=== PATIENT | male | born 1950 | race Caucasian/White ===

== ENCOUNTER 2022-08-22 10:29 | Inpatient (IN) ==
--- NOTE | 2022-07-29 10:59 | PAT Medication Instructions ---
Medication Instructions Date of Service July 29, 2022 Home Medications Herbal Magnesium 2 tab PO BID calcipotriene 0.005 % topical cream 1 applic topical DAILY PRN Rash celecoxib 200 mg capsule (Celebrex) 200 mg PO QAM cetirizine 10 mg tablet 10 mg PO HS cholecalciferol (vitamin D3) 125 mcg (5,000 unit) tablet (Vitamin D3) 10,000 unit PO QPM clobetasol 0.05 % topical cream 1 applic topical DAILY PRN Rash ferrous sulfate 325 mg (65 mg iron) tablet 325 mg PO QPM tamsulosin 0.4 mg capsule 0.4 mg PO QPM vitamin K2 100 mcg capsule 100 mcg PO QPM ASK your surgeon for instructions celecoxib 200 mg capsule (Celebrex) 200 mg PO QAM STOP taking 2 weeks before surgery Herbal Magnesium 2 tab PO BID vitamin K2 100 mcg capsule 100 mcg PO QPM STOP taking 24 hours before surgery calcipotriene 0.005 % topical cream 1 applic topical DAILY PRN Rash clobetasol 0.05 % topical cream 1 applic topical DAILY PRN Rash Take evening before surgery cetirizine 10 mg tablet 10 mg PO HS cholecalciferol (vitamin D3) 125 mcg (5,000 unit) tablet (Vitamin D3) 10,000 unit PO QPM ferrous sulfate 325 mg (65 mg iron) tablet 325 mg PO QPM tamsulosin 0.4 mg capsule 0.4 mg PO QPM OTHERWISE NOTHING TO EAT OR DRINK AFTER MIDNIGHT Other Notes If you have any questions please call us at [phone] or [phone] or [phone] or [phone]
--- NOTE | 2022-08-08 10:42 | Anesthesiology Consultation ---
Date of Service August 08, 2022 Assessment & Plan (1) Encounter for pre-operative examination: - COVID screening: Per assessment on 08/08: No known COVID-19 positive contacts or current COVID-19 related symptoms. Travel screen negative. Patient vaccinated. At surgeon discretion if preop Covid testing being done. - Hx anemia: Patient follows with [facility] ([place]). Note sent to hematology regarding preop CBC findings (WBC 3.24, H/H 11.9/35.8). Awaiting response ([facility]/[place]). Chart Review Chart Review: Patient seen in Pre Admission Testing Teaching & Discussion Pre-Anesthesia Teaching/Discussion Notes: Instructed NPO after midnight before surgery,except medications with 15 cc of water. Medication instructions provided according to the PAT guidelines. History Surgery Operation Date: 08/22/22 10:35 Proposed Procedures p L4-S1 Revision Decompression and Fusion, Possible L3-L4, Spinal Cord Monitoring - Kaleb Kaye, Height/Weight Height: 5 ft 9.5 in Weight: 86.7 kg Allergies Allergy/AdvReac Type Severity Reaction Status Date / Time latex Allergy Mild Redness, Verified 07/29/22 14:54 hands raw with latex gloves Medications Home Medications Medication Instructions Recorded Confirmed Last Taken Herbal Magnesium 2 tab PO BID 07/28/22 07/28/22 Unknown calcipotriene 0.005 % topical cream 1 applic topical DAILY PRN Rash 07/28/22 07/28/22 Unknown celecoxib 200 mg capsule (Celebrex) 200 mg PO QAM 07/28/22 07/28/22 Unknown cetirizine 10 mg tablet 10 mg PO HS 07/28/22 07/28/22 Unknown cholecalciferol (vitamin D3) 125 10,000 unit PO QPM 07/28/22 07/28/22 Unknown mcg (5,000 unit) tablet (Vitamin D3) clobetasol 0.05 % topical cream 1 applic topical DAILY PRN Rash 07/28/22 07/28/22 Unknown ferrous sulfate 325 mg (65 mg 325 mg PO QPM 07/28/22 07/28/22 Unknown iron) tablet tamsulosin 0.4 mg capsule 0.4 mg PO QPM 07/28/22 07/28/22 Unknown vitamin K2 100 mcg capsule 100 mcg PO QPM 07/28/22 07/28/22 Unknown Past Medical History Medical History Anemia Chronic, stable. No definitive etiology found per patient Follows with [facility]/[place] BPH (benign prostatic hyperplasia) Chronic back pain Osteoarthritis Exercise / Class Metabolic Activity II 4-5 Yardwork/Stairs/Walk up hill Past Family History Family History Other No family history of adverse response to anesthesia Past Surgical History Surgical History History of anesthesia reaction 2013 > post-op complaints by patient of the "flap" getting stuck so he saw an ENT, he says he was told by the ENT that he had a "scarred uvula" at [facility] when having shoulder surgery Multiple subsequent general anesthesia without issues per patient History of appendectomy History of colonoscopy History of esophagogastroduodenoscopy (EGD) History of eye surgery Right eye retinal tear History of left inguinal hernia repair History of lumbar surgery History of repair of left rotator cuff x3 History of repair of right rotator cuff History of right inguinal hernia repair Nausea and vomiting after administration of anesthetic agent Past Anesthesia History No Family Hx of Anesthesia Complications History of PONV No Hx of Motion Sickness and History of PONV Social History Smoking Status: Former smoker Do You Dip or Chew Tobacco: No Smoking End Date: Quit 10 years ago Hx Alcohol Use: No Hx Substance Use: No substance use type: does not use Review of Systems Patient denies chest pain, shortness of breath, dyspnea on exertion, fever, chills, cough, wheezing, palpitations. Physical Exam Vital Signs VITALS BP 115/74 P 59 TEMP 98.4 SP02 95%RA RESP 18 PHYSICAL Mildly decreased cervical extension range of motion. Full TMJ range of motion. TMD 3 finger breaths Mallampati Score 3 Dentition: intact, molars "repaired" Lungs: clear throughout to auscultation Cardiac: regular rate and rhythm, no murmurs noted Spine: normal Carotid arteries: negative bruit Extremities: no LE edema Lab Results Anesthesia Preop Results Results Anesthesia Widget: WBC 3.24 K/ul (4.8-10.8) L 08/08/22 Hgb 11.9 g/dl (14.0-18.0) L 08/08/22 Hct 35.8 % (42.0-52.0) L 08/08/22 Plt 129 K/uL (130-400) L 08/08/22 Na 140 mmol/L (136-145) 08/08/22 K 4.4 mmol/L (3.5-5.1) 08/08/22 Cl 107 mmol/L (98-107) 08/08/22 CO2 30 mmol/L (21-32) 08/08/22 BUN 26 mg/dl (6-23) H 08/08/22 Creat 1.18 mg/dl (0.6-1.4) 08/08/22 Glucose Level 91 mg/dl (70-99(Fasting)) 08/08/22 PT 10.5 Seconds (9.0-12.0) 08/08/22 PTT 25.6 Seconds (21.0-31.0) 08/08/22 INR 1.0 (0.9-1.1) 08/08/22 Urine Color Yellow 08/08/22 Urine Appearance Clear (Clear) 08/08/22 Urine pH 5.5 (4.5-7.5) 08/08/22 Urine Specific [place] 1.018 (1.000-1.030) 08/08/22 Urine Protein Negative (Negative) 08/08/22 Urine Glucose (UA) Negative (Negative) 08/08/22 Urine Ketones Negative (Negative) 08/08/22 Urine Blood Negative (Negative) 08/08/22 Urine Nitrite Negative (Negative) 08/08/22 Urine Bilirubin Negative (Negative) 08/08/22 Urine Urobilinogen Negative (Negative) 08/08/22 Urine Leukocyte Esterase Negative (Negative) 08/08/22 Blood Type A Negative 08/08/22 Antibody Screen NEGATIVE 08/08/22 Testing Electrocardiogram Date: 08/08/22 NSR at 60bpm. Chest X-Ray Date: 08/08/22 FINDINGS: PA and lateral chest radiographs are obtained. No prior studies are available for comparison at the time of dictation. The cardiomediastinal silhouette is unremarkable. Nonspecific interstitial thickening is likely chronic. There is mild elevation of the right hemidiaphragm with associated right basilar atelectasis. No airspace consolidation or pleural effusion is i dentified. There is no pneumothorax. The skeletal structures are osteopenic. The bony thorax appears intact. Degenerative change is noted throughout the thoracic spine. IMPRESSION: No active disease in the chest. COVID-19 Risk Screen Screening Information COVID-19 Screen Date: 08/08/22 Exposure 21 Days Family/Household +COVID Last 21 Days: No Exposure 10 Days Any COVID Exposure Last 10 Days: No Symptoms Last 10 Days Experienced COVID Sx Last 10 Days: No + COVID 0-90 Days COVID + in Last 0-90 Days: No
[~2022-08-22 10:29] MED LIST: ACETAMINOPHEN 500 MG TAB PO SCH; CeleBREX 200 MG CAP PO SCH; GABAPENTIN 300 MG CAP PO SCH; LR 15ML/HR IV SCH; ceFAZolin 2000MG 2,000 MG/15 ML SYR IV SCH
[2022-08-22] MEDS ORDERED: ROCURONIUM BROMIDE 10 MG/ML 5 ML VIAL IV ONE (10:53)
[2022-08-22] MEDS ORDERED: PROPOFOL IV EMULSION 10 MG/ML 20 ML VIAL IV ONE (10:53)
[2022-08-22] MEDS ORDERED: MIDAZOLAM HCL 1 MG/ML 2ML VIAL ONE (10:53)
[2022-08-22] MEDS ORDERED: fentaNYL citrate PF 100 MCG/2 ML VIAL ONE ×2 (10:53→12:41)
[2022-08-22] MEDS ORDERED: LIDOCAINE 2% 2 ML VIAL/AMP(20MG/ML) INFIL ONE (10:53)
--- NOTE | 2022-08-22 11:08 | History & Physical Bridge Note ---
Date of Service August 22, 2022 History & Physical Bridge Note I have examined the patient, reviewed the History & Physical and in the interval since the performance of the History & Physical I have noted the following changes of clinical significance: no changes noted
--- NOTE | 2022-08-22 11:09 | History & Physical Report ---
Date of Service August 22, 2022 Assessment & Plan (1) Neurogenic claudication due to lumbar spinal stenosis: Plan: L4-S1 decompression and fusion, possible L3-L4 History of Present Illness Chief Complaint: Back and bilateral leg pain Primary Care Provider: Jose Barber This is a 72-year-old male who presents with chronic persistent back and leg pain after failing course of nonoperative care is here for surgical intervention. Allergies Allergy/AdvReac Type Severity Reaction Status Date / Time latex Allergy Mild Redness, Verified 07/29/22 14:54 hands raw with latex gloves Home Medications Medication Instructions Recorded Confirmed Type Herbal Magnesium 2 tab PO BID 07/28/22 07/28/22 History calcipotriene 0.005 % topical cream 1 applic topical DAILY PRN Rash 07/28/22 07/28/22 History celecoxib 200 mg capsule (Celebrex) 200 mg PO QAM 07/28/22 07/28/22 History cetirizine 10 mg tablet 10 mg PO HS 07/28/22 07/28/22 History cholecalciferol (vitamin D3) 125 10,000 unit PO QPM 07/28/22 07/28/22 History mcg (5,000 unit) tablet (Vitamin D3) clobetasol 0.05 % topical cream 1 applic topical DAILY PRN Rash 07/28/22 07/28/22 History ferrous sulfate 325 mg (65 mg 325 mg PO QPM 07/28/22 07/28/22 History iron) tablet tamsulosin 0.4 mg capsule 0.4 mg PO QPM 07/28/22 07/28/22 History vitamin K2 100 mcg capsule 100 mcg PO QPM 07/28/22 07/28/22 History Past Med/Surg History Medical History Anemia Chronic, stable. No definitive etiology found per patient Follows with [facility]/[place] BPH (benign prostatic hyperplasia) Chronic back pain Osteoarthritis Surgical History History of anesthesia reaction 2012 > post-op complaints by patient of the "flap" getting stuck so he saw an ENT, he says he was told by the ENT that he had a "scarred uvula" at [facility] when having shoulder surgery Multiple subsequent general anesthesia without issues per patient History of appendectomy History of colonoscopy History of esophagogastroduodenoscopy (EGD) History of eye surgery Right eye retinal tear History of left inguinal hernia repair History of lumbar surgery History of repair of left rotator cuff x3 History of repair of right rotator cuff History of right inguinal hernia repair Nausea and vomiting after administration of anesthetic agent Family History Other No family history of adverse response to anesthesia Social History Smoking Status: Former smoker Smoking End Date: Quit 10 years ago; Second Hand Exposure: No; Do You Dip or Chew Tobacco: No; Tobacco Cessation Education Requested by Patient: No Hx Alcohol Use: No Hx Substance Use: No Preferred Language: Turkish Communication Ability: Effective Lodge Attendant Required: No Beliefs That Will Affect Care: None Current Living Situation: Spouse Other Information That Helps Us Care for You: No Feels Safe at Home: Yes Safety Concerns: Feels Safe At This Time Assistive Devices: Glasses Physical Exam Physical Exam: Patient is alert and oriented Heart regular rhythm Lungs clear
[2022-08-22] MEDS ORDERED: BUPIVACAINE/EPINEPHRINE 0.5% MPF 1:200,000 30 ML VIAL ONE (11:14)
[2022-08-22] MEDS ORDERED: ceFAZolin 330 MG/ML 1 GM VIAL ONE (11:14)
[2022-08-22] MEDS ORDERED: ePHEDrine sulfate 50 MG/ML AMP IV PRN (11:21)
[2022-08-22] MEDS ORDERED: ONDANSETRON INJ 2 MG/ML 2 ML VIAL IV PRN ×2 (11:21→15:34)
[2022-08-22] MEDS ORDERED: ATROPINE SULFATE 0.1 MG/ML 10ML SYR IV PRN (11:21)
[2022-08-22] MEDS ORDERED: fentaNYL citrate PF 100 MCG/2 ML VIAL IV PRN (11:21)
[2022-08-22] MEDS ORDERED: NALOXONE HCL 0.4 MG/1 ML VIAL/CARP IV PRN ×2 (11:21→15:34)
[2022-08-22] MEDS ORDERED: PROMETHAZINE HCL 12.5 MG in SODIUM CHLORIDE 0.9% 50 ML IV PRN ×2 (11:21→15:34)
[2022-08-22] MEDS ORDERED: LABETALOL HCL IV 5 MG/ML 20ML IV PRN (11:21)
[2022-08-22] MEDS ORDERED: FLUMAZENIL 0.1 MG/1 ML 10 ML VIAL IV PRN (11:21)
[2022-08-22] MEDS ORDERED: HYDROmorphone INJ 1 MG/ML SYRINGE IV PRN ×2 (11:21→15:34)
[2022-08-22] MEDS ORDERED: PHENYLEPHRINE 100MCG/ML 5ML SYR ONE (12:12)
[2022-08-22] MEDS ORDERED: ePHEDrine sulfate 50 MG/ML AMP ONE (12:12)
[2022-08-22] MEDS ORDERED: ONDANSETRON INJ 2 MG/ML 2 ML VIAL ONE ×2 (12:29)
[2022-08-22] MEDS ORDERED: DEXAMETHASONE SOD INJ 4 MG/ML VIAL ONE (12:29)
[2022-08-22] MEDS ORDERED: FLOSEAL HEMOSTATIC MATRIX 10ML TOP ONE (12:35)
[2022-08-22] MEDS ORDERED: SUGAMMADEX SODIUM 200 MG/2 ML VIAL IV ONE (13:59)
--- NOTE | 2022-08-22 14:06 | Operative Report ---
Post Operative Report Pre & Post Diagnosis Operation Date: 08/22/22 11:55 Pre-Op Diagnosis: Neurogenic claudication due to lumbar spinal stenosis Post-Op Diagnosis: Neurogenic claudication due to lumbar spinal stenosis I identified the patient and participated in the time-out.: Yes Procedure Operation Date: 08/22/22 11:55 Actual Procedures #1 revision decompression with bilateral medial facetectomies and foraminotomies L4-L5 L5-S1. #2 posterior spinal fusion L4-L5 L5-S1. #3 placement posterior instrumentation L4-S1. #5 interbody fusion L4-L5 L5-S1. #6 placement Spira 14 x 26 mm cage at L4-L5 and 13 x 26 mm cage at L5-S1. #6 placement locally harvested morselized autograft in the posterior gutters. #7 placement of infuse collagen sponge, master graft in the posterior gutters and I factor and interbody spaces. Surgeon Kaleb Kaye, Rhinologist Jermaine Muir Estimated Blood Loss 50 Findings Consistent with Post-Op Diagnosis Specimens None Indications This is a 72-year-old male who presents above-mentioned diagnosis after failing course of nonoperative care is here for surgical invention. Description of Procedure Patient was met with identified informed consent obtained. Patient was then taken to the operative suite after undergoing successful general intubation was placed in a prone position on the Sebas table top Alcides frame. All bony promises well-padded eyes inspected to ensure no external pressure placed upon them. This point the lumbar spine was prepped and draped in sterile fashion. Sharp dissection with assistance of Bovie cautery was performed down to and exposing the remaining lamina and transverse processes of L4-L5 and the sacral ala bilaterally. From caudal to cephalad fashion revision complete laminectomy of L5 L4 was performed including medial facetectomies and foraminotomies addressing severe foraminal stenosis. Pedicle screws were then placed in L for L5 and S1 levels bilaterally with assistance of fluoroscopy and appropriate sized jorge luis placed. Bilateral transforaminal approach on the right complete discectomy of L5-S1 was performed endplates curetted to subcortical bleeding bone and a 13 x 26 mm Spira cage with I factor tapped in position. Then proceeded to L4-L5 again [address] way of transforaminal approach and right complete discectomy performed endplates curetted to subcortically bone and a 14 x 26 mm Spira cage with I factor tapped position. The rods were then locked into final position bilaterally. The transverse processes of L4-L5 and sacral ala burred to subcortical bleeding bone. Infuse collagen sponge from mass graft locally harvested morselized autograft placed in the posterior gutters. 15 round ORIN drain inserted. The incision was then closed with 1 Vicryl to fascia 2-0 Vicryl subcutaneously and 4 Monocryl for final skin closure. Steri-Strip sterile dressing placed. Patient awakened taken to PACU stable condition. Please note spinal cord monitoring visualized at the procedure no changes noted. Lastly Jermaine Muir was present at the entire procedure involved in patient positio justo complex portions of the surgery and final skin closure. I attest to the content of the Intraoperative Record and any orders documented therein. Any exceptions are noted below.
--- NOTE | 2022-08-22 14:16 | Fluoroscopy Report ---
FL lumbar spine 2-3V CLINICAL HISTORY: L4-S1 DECOMPRESSION COMPARISON STUDY: None. FLUOROSCOPY TIME: 29 seconds. Ka, r: 24.18 mGy FLUOROSCOPIC IMAGES: 2 FINDINGS: Fluoroscopy was provided during L4-L5 and L5-S1 discectomies with interbody spacer placemen t. Posterior decompression is noted. There are bilateral pedicle screws at the L4, L5 and S1 levels w ith interconnecting rods. Hardware is intact. IMPRESSION: Fluoroscopy provided during L4-S1 discectomies, posterior decompression and bilateral pe dicle screw fusion. ACT 112: Negative or not required by law. Electronically signed by: Hero Lopez M.D. 08/22/2022 2:14 PM
--- NOTE | 2022-08-22 15:29 | Anesthesiology Progress Note ---
Date of Service August 22, 2022 Anesthesia Post Procedure Vital Signs Vital Signs: Temp Pulse Pulse Resp BP Pulse Ox O2 Del Method 08/22/22 15:20 36.3 C L 78 15 115/70 95 Nasal Cannula 08/22/22 15:10 85 17 112/62 94 Nasal Cannula 08/22/22 14:50 83 17 119/69 94 Nasal Cannula 08/22/22 15:00 83 15 111/64 91 Nasal Cannula 08/22/22 14:40 88 16 101/70 95 Nasal Cannula 08/22/22 14:33 36.0 C L 93 H 12 123/73 97 Oxymask 08/22/22 11:14 36.9 C 66 20 117/59 L 94 Room Air O2 Flow Rate 08/22/22 15:20 2 08/22/22 15:10 2 08/22/22 14:50 2 08/22/22 15:00 2 08/22/22 14:40 2 08/22/22 14:33 4 08/22/22 11:14 Pain Intensity Back: Pain Intensity: 3 Transfer of Care Handoff Completed per policy Notes Mental Status: alert / awake / arousable Patient Amnestic to Procedure: Yes Nausea / Vomiting: adequately controlled Pain: adequately controlled Airway Patency, RR, SpO2: stable & adequate BP & HR: stable & adequate Hydration State: stable & adequate Anesthetic Complications: no major complications apparent
[2022-08-22] MEDS ORDERED: LORazepam 2 MG/1 ML VIAL IV PRN (15:34)
[2022-08-22] MEDS ORDERED: METOCLOPRAMIDE HCL INJ 5 MG/ML 2 ML VIAL IV PRN (15:34)
[2022-08-22] MEDS ORDERED: bisacodyL 10 MG SUPP PR PRN (15:34)
[2022-08-22] MEDS ORDERED: ONDANSETRON 4 MG OD TAB PO PRN (15:34)
[2022-08-22] MEDS ORDERED: ACETAMINOPHEN 1,000 MG/100 ML VIAL IV PRN (15:34)
[2022-08-22] MEDS ORDERED: ALUMINUM/MAGNESIUM SUSP 30 ML UDC PO PRN (15:34)
[2022-08-22] MEDS ORDERED: HYDROmorphone INJ 0.5 MG/0.5 ML SYR IV PRN (15:34)
[2022-08-22] MEDS ORDERED: hydrOXYzine HCl 25 MG TAB PO PRN (15:34)
[2022-08-22] MEDS ORDERED: DO NOT ADMINISTER PNEUMOCOCCAL VACCINE PRN (15:34)
[2022-08-22] MEDS ORDERED: LORazepam 0.5 MG TAB PO PRN (15:34)
[2022-08-22] MEDS ORDERED: DO NOT ADMINISTER FLU VACCINE PRN (15:34)
[2022-08-22] MEDS ORDERED: SOD PHOSPHATE/SOD BIPHOSPHATE ENEMA 132 ML BTL PR PRN (15:34)
[2022-08-22] MEDS ORDERED: traMADol HCL 50 MG TABLET PO PRN (15:34)
[2022-08-22] MEDS ORDERED: diphenhydrAMINE Capsule 25 MG CAP PO PRN (15:34)
[2022-08-22] MEDS ORDERED: MAGNESIUM HYDROXIDE SUSP 30 ML UDC PO PRN (15:34)
[2022-08-22] MEDS ORDERED: oxyCODONE HCL IR 5 MG TAB (IMMEDIATE RELEASE) PO PRN (15:34)
[2022-08-22] MEDS ORDERED: FAMOTIDINE 20 MG TAB PO PRN (15:34)
[2022-08-22] MEDS: LACTATED RINGER'S 1,000 ML IV SCH (15:45)
--- NOTE | 2022-08-22 18:01 | Consultation ---
Date of Consultation August 22, 2022 Assessment & Plan (1) Neurogenic claudication due to lumbar spinal stenosis: (2) S/P spinal surgery: Post op day# 0 S/P revision decompression L4-S1, fusion L4-S1 today by Dr Kaye EBMicky# 50ml -pain management per ortho -wound management per ortho -PT/OT as appropriate -DVT prophylaxis per ortho -incentive spirometry -monitor H&H for acute blood loss anemia; pre-op Hgb: 11.9 (3) MGUS (monoclonal gammopathy of unknown significance): (4) Anemia: History MGUS, chronic iron deficiency anemia, chronic neutropenia -Pre-op Hgb: 11.9, WBC: 3.2 -Continue ferrous sulfate -Follows with [facility] (5) BPH (benign prostatic hyperplasia): - Continue tamsulosin DVT Prophylaxis -SCDs Disposition per primary team Follows with Dr Jose Barber in [place], [place] for routine care Pt was seen and care coordinated with Dr Hector. See addendum Thank you for this consultation. We will follow the patient with you during their hospital stay. You can reach a [facility]11 via [facility] Supervising Physician Co-Signing Physician Notes I have seen and examined the patient and have discussed the case with the provider above. I agree with the assessment and plan as stated. 72 yo M doing well post lumbar surgery. Has some difference in sensation on hiss lower legs, magnified by the SCDs that are in place. However, sensation is generally improved overall. He denies any uncontrolled back pain or other issuess. Physical exam was unremarkable and he is mentating well. ORIN drain in place. L spsine wound is in surgical dressing and was not evaluated tonight. Medications were reviewed. Agree with the managment decisions above. Thank you for this consultation. DO Krunal History of Present Illness Requesting Physician: Dr Kaye Reason for Consultation: Post op medical management Attending Physician: Kaleb Kaye DO History of Present Illness Patient is 72 y/o M with PMH chronic iron deficiency anemia, MGUS, BPH seen in medical consultation s/p revision decompression L4-S1, fusion L4-S1 today by Dr. Kaye. Post op patient reports doing well. Pain is controlled currently. Has Floyd catheter in place. Tolerating clear liquids. Denies fever/chills, diaphoresis, N/V/D/C, SINGH, dizziness, syncope, vision changes, neck pain, CP, SOB, palpitations, cough, rhinorrhea, abdominal pain, paresthesias, extremity weakness, extremity edema, rashes, urinary symptoms. Allergies Allergy/AdvReac Type Severity Reaction Status Date / Time latex Allergy Mild Redness, Verified 08/22/22 11:10 hands raw with latex gloves Home Medications Medication Instructions Recorded Confirmed Type Herbal Magnesium 2 tab PO BID 07/28/22 08/22/22 History calcipotriene 0.005 % topical cream 1 applic topical DAILY PRN Rash 07/28/22 08/22/22 History celecoxib 200 mg capsule (Celebrex) 200 mg PO QAM 07/28/22 08/22/22 History cetirizine 10 mg tablet 10 mg PO HS 07/28/22 08/22/22 History cholecalciferol (vitamin D3) 125 10,000 unit PO QPM 07/28/22 08/22/22 History mcg (5,000 unit) tablet (Vitamin D3) clobetasol 0.05 % topical cream 1 applic topical DAILY PRN Rash 07/28/22 08/22/22 History ferrous sulfate 325 mg (65 mg 325 mg PO QPM 07/28/22 08/22/22 History iron) tablet tamsulosin 0.4 mg capsule 0.4 mg PO QPM 07/28/22 08/22/22 History vitamin K2 100 mcg capsule 100 mcg PO QPM 07/28/22 08/22/22 History Patient History Medical History (Updated 08/22/22 @ 18:46 by Haylee Ansari PA-C) Anemia Chronic, stable. No definitive etiology found per patient Follows with [facility]/[place] BPH (benign prostatic hyperplasia) Chronic back pain MGUS (monoclonal gammopathy of unknown significance) Osteoarthritis Surgical History (Updated 08/22/22 @ 18:46 by Haylee Ansari PA-C) History of anesthesia reaction 2012 > post-op complaints by patient of the "flap" getting stuck so he saw an ENT, he says he was told by the ENT that he had a "scarred uvula" at [facility] when having shoulder surgery Multiple subsequent general anesthesia without issues per patient History of appendectomy History of colonoscopy History of esophagogastroduodenoscopy (EGD) History of eye surgery Right eye retinal tear History of left inguinal hernia repair History of lumbar surgery History of repair of left rotator cuff x3 History of repair of right rotator cuff History of right inguinal hernia repair Nausea and vomiting after administration of anesthetic agent Family History Other No family history of adverse response to anesthesia Social History Smoking Status: Former smoker Smoking End Date: Quit 10 years ago; Second Hand Exposure: No; Do You Dip or Chew Tobacco: No; Tobacco Cessation Education Requested by Patient: No Hx Alcohol Use: No Hx Substance Use: No Preferred Language: Macanese Communication Ability: Effective Sueding Machine Tender Required: No Beliefs That Will Affect Care: None Current Living Situation: Spouse Other Information That Helps Us Care for You: No Feels Safe at Home: Yes Safety Concerns: Feels Safe At This Time Assistive Devices: Glasses Review of Systems Review of Systems: All systems reviewed & are unremarkable except as noted in HPI & below Physical Exam Physical Exam: General: no acute distress, WDWN Head: normocephalic, atraumatic Eyes: conjunctiva non-injected, anicteric ENT: normal inspection external ears, nose, mucous membranes moist Neck: supple, trachea midline Lungs: clear, no respiratory distress, no wheezing/rhonchi/rales CV: RRR, no murmur, no pretibial edema Abd: normal BS, soft, non-tender Back: Surgical dressing in place is dry and intact, ORIN drain with serosanguineous drainage Ext: no cyanosis, no calf tenderness, bilateral pedal pushes and pulls intact, sensation to light touch intact, distal pulses intact Neuro: A&O x 3, no focal deficits noted, normal affect Skin: warm, dry Results & Data Vital Signs (Past 12 Hours) Vital Signs Temp Pulse Pulse Resp BP Pulse Ox O2 Del Method 08/22/22 17:22 08/22/22 17:37 80 18 120/69 98 Room Air 08/22/22 16:26 83 18 108/65 98 Nasal Cannula 08/22/22 15:34 36.4 C L 72 18 123/76 96 Nasal Cannula 08/22/22 15:36 36.5 C 84 16 106/68 96 Nasal Cannula 08/22/22 15:20 36.3 C L 78 15 115/70 95 Nasal Cannula 08/22/22 15:10 85 17 112/62 94 Nasal Cannula 08/22/22 14:50 83 17 119/69 94 Nasal Cannula 08/22/22 15:00 83 15 111/64 91 Nasal Cannula 08/22/22 14:40 88 16 101/70 95 Nasal Cannula 08/22/22 14:33 36.0 C L 93 H 12 123/73 97 Oxymask 08/22/22 11:14 36.9 C 66 20 117/59 L 94 Room Air O2 Flow Rate 08/22/22 17:22 2 08/22/22 17:37 08/22/22 16:26 2 08/22/22 15:34 2 08/22/22 15:36 2 08/22/22 15:20 2 08/22/22 15:10 2 08/22/22 14:50 2 08/22/22 15:00 2 08/22/22 14:40 2 08/22/22 14:33 4 08/22/22 11:14
[2022-08-22] MEDS: ceFAZolin 2000MG 2,000 MG/15 ML SYR IV SCH (21:06)
[2022-08-22] MEDS: CHOLECALCIFEROL 5,000 UNITS 125 MCG TAB PO SCH (21:07)
[2022-08-22] MEDS: CETIRIZINE HCL 10 MG TABLET PO SCH (21:07)
[2022-08-22] MEDS: TAMSULOSIN HCL 0.4 MG CAP PO SCH (21:08)
[2022-08-22] MEDS: DOCUSATE SODIUM/SENNA 50/8.6MG TAB PO SCH (21:08)
[2022-08-22] MEDS: FERROUS SULFATE 325 MG TAB PO SCH (21:08)
[2022-08-23] MEDS: LACTATED RINGER'S 1,000 ML IV SCH ×2 (00:39→05:59)
[2022-08-23] MEDS: ACETAMINOPHEN 500 MG TAB PO PRN ×2 (05:42→16:06)
[2022-08-23] MEDS: ceFAZolin 2000MG 2,000 MG/15 ML SYR IV SCH (05:44)
[2022-08-23] MEDS: POLYETHYLENE (MIRALAX) 17 GM PACK PO SCH ×3 (05:45→17:37)
[2022-08-23 06:21] LABS: BUN Creatinine Ratio 19.6 (10-20); Calcium 8.3 mg/dl (8.6-10.3); Creatinine Clr Calc Pharmacy 82.2 ml/min; Est GFR (African American) 97.3 ml/min; Potassium 4.2 mmol/L (3.5-5.1)
[2022-08-23 06:25] LABS: Basophils # (auto) 0.01 K/uL (0-0.2); Basophils % (auto) 0.2 %; Eosinophils # (auto) 0.01 K/uL (0-0.50); Eosinophils % (auto) 0.2 %; Immature Granulocytes # (auto) 0.01 K/uL (0.01-0.20); Immature Granulocytes % (auto) 0.2 %; Lymphocytes # (auto) 0.66 K/uL (1.2-3.4); Lymphocytes % (auto) 11.5 %; Mean Corpuscular Hemoglobin 31.3 pg (25.0-34.0); Mean Corpuscular Hgb Conc 33.3 g/dL (32.0-36.0); Mean Platelet Volume 10.2 fL (9.4-12.4); Monocytes # (auto) 0.41 K/uL (0.11-0.59); Monocytes % (auto) 7.2 %; Neutrophils # (auto) 4.62 K/uL (1.40-6.50); Neutrophils % (auto) 80.7 %; Platelet Count 127 K/uL (130-400); RDW Coefficient of Variation 13.9 % (11.5-14.5); RDW Standard Deviation 47.1 fL (36.4-46.3); Red Blood Count 3.51 M/uL (4.70-6.10); White Blood Count 5.72 K/ul (4.8-10.8)
[2022-08-23] MEDS: dexAMETHasone 6 MG in SYRINGE 0 ML IV SCH (08:19)
--- NOTE | 2022-08-23 08:37 | Orthopedic Progress Note ---
Date of Service August 23, 2022 Assessment & Plan (1) Neurogenic claudication due to lumbar spinal stenosis: Plan: This time initiate physical therapy monitor his ORIN output hopefully discharge home in the next few days. Admission and Anticipated Discharge Date Admission Date: August 22, 2022 Subjective Back pain controlled leg pain improved Physical Exam Physical Exam: Patient is in bed. Comfortable. Is constricted testing. Results & Data Vital Signs (Past 12 Hours) Vital Signs Temp Pulse Resp BP Pulse Ox O2 Del Method O2 Flow Rate 08/23/22 07:31 36.8 C 74 16 109/66 93 Room Air 08/22/22 21:08 Nasal Cannula 2 08/23/22 03:28 36.9 C 89 18 101/61 94 Room Air 08/22/22 22:52 36.9 C 78 18 136/71 94 Room Air
--- NOTE | 2022-08-23 11:51 | Hospitalist Progress Note ---
Date of Service August 23, 2022 Assessment & Plan (1) Neurogenic claudication due to lumbar spinal stenosis: (2) S/P spinal surgery: Plan: Post op day# 1 S/P revision decompression L4-S1, fusion L4-S1 today by Dr Mikki BOOKER# 50ml -pain management per ortho -wound management per ortho -PT/OT as appropriate -DVT prophylaxis per ortho -incentive spirometry -Remains stable (3) MGUS (monoclonal gammopathy of unknown significance): Plan: No acute symptoms were changed (4) Anemia: Plan: History MGUS, chronic iron deficiency anemia, chronic neutropenia -Pre-op Hgb: 11.9, WBC: 3.2 -Continue ferrous sulfate -Follows with [facility] -Hemoglobin remains stable (5) BPH (benign prostatic hyperplasia): Plan: - Continue tamsulosin DVT Prophylaxis -SCDs Disposition per primary team Follows with Dr Jose Barber in [place], [place] for routine care Medically stable Admission and Anticipated Discharge Date Admission Date: August 22, 2022 Subjective 08/23/2022 The patient was seen and examined in medical floor He is status post L4-S1 revision decompression and fusion on 08/22/2022 Still has the same symptoms in the legs as before but denies any other significant medical symptoms Review of Systems Review of Systems: All systems reviewed and are unremarkable except as noted below Physical Exam Physical Exam: Lying in bed comfortably Constitutional: well developed, well nourished and average body habitus; not ill appearing Eyes: PERRL, conjunctivae normal, anicteric sclerae ENMT: external ear and nose normal, oropharynx normal Neck: trachea midline, no thyromegaly Respiratory: no respiratory distress Auscultation: lungs clear to auscultation bilaterally Cardiovascular: Rate/Rhythm: regular rate and regular rhythm; not tachycardic Heart Sounds: normal S1 and normal S2; no murmur Extremities: no edema Gastrointestinal (Abdomen): Inspection/Auscultation: normal bowel sounds; abdomen not distended Percussion/Palpation: abdomen soft; abdomen nontender Musculoskeletal: No acute arthritis involving any of the joint Neurologic: Alert, awake and oriented x3. No focal neurodeficit Psychiatric: A+Ox3, euthymic affect Lymphatic: no cervical or axillary lymphadenopathy Results & Data Results & Data Vital Signs (Past 12 Hours) Vital Signs Temp Pulse Pulse Resp BP Pulse Ox O2 Del Method 08/23/22 08:00 36.9 C 78 17 144/74 H 94 Room Air 08/23/22 07:31 36.8 C 74 16 109/66 93 Room Air 08/23/22 03:28 36.9 C 89 18 101/61 94 Room Air Laboratory Results Short CBC 08/23/22 Range/Units 05:49 WBC 5.72 (4.8-10.8) K/ul Hgb 11.0 L (14.0-18.0) g/dl Hct 33.0 L (42.0-52.0) % Plt Count 127 L (130-400) K/uL BMP 08/23/22 05:49 Sodium 141 Potassium 4.2 Chloride 107 Carbon Dioxide 29 BUN 18 Creatinine 0.92 Glucose 124 H Calcium 8.3 L Medications Administered Current Inpatient Medications Acetaminophen (Acetaminophen 500 Mg Tab) 1,000 mg PO Q8H PRN PRN Reason: MILD Pain Scale 1,2,3 & Pre PT Stop: 09/21/22 15:33 Last Admin: 08/23/22 05:42 Dose: 1,000 mg Al Hydrox/Mg Hydrox/Simethicone (Aluminum/Magnesium Susp 30 Ml Udc) 30 ml PO Q6H PRN PRN Reason: Dyspepsia Stop: 09/21/22 15:33 Bisacodyl (Bisacodyl 10 Mg Supp) 10 mg SC DAILY PRN PRN Reason: Constipation Stop: 09/21/22 15:33 Cetirizine HCl (Cetirizine Hcl 10 Mg Tablet) 10 mg PO HS CRISTAL Stop: 09/21/22 20:59 Last Admin: 08/22/22 21:07 Dose: 10 mg Diphenhydramine HCl (Diphenhydramine Capsule 25 Mg Cap) 25 mg PO Q6H PRN PRN Reason: Allergic Rhinitis/Insomnia Stop: 09/21/22 15:33 Famotidine (Famotidine 20 Mg Tab) 20 mg PO Q12H PRN PRN Reason: Dyspepsia Stop: 09/21/22 15:33 Ferrous Sulfate (Ferrous Sulfate 325 Mg Tab) 325 mg PO QPM CRISTAL Stop: 09/21/22 20:59 Last Admin: 08/22/22 21:08 Dose: 325 mg Hydromorphone HCl (Hydromorphone Inj 0.5 Mg/0.5 Ml Syr) 0.5 mg IV Q3H PRN PRN Reason: MODERATE Pain (Scale 4,5,6) & Pre PT Stop: 09/05/22 15:33 Hydromorphone HCl (Hydromorphone Inj 1 Mg/Ml Syringe) 1 mg IV Q3H PRN PRN Reason: SEVERE Pain (Scale 7,8,9,10) Stop: 09/05/22 15:33 Hydroxyzine HCl (Hydroxyzine Hcl 25 Mg Tab) 25 mg PO Q8H PRN PRN Reason: Anxiety Stop: 09/21/22 15:33 Promethazine HCl 12.5 mg/ (Sodium Chloride) 50.5 mls @ 202 mls/hr IV Q6H PRN PRN Reason: Nausea &/or Vomiting Stop: 09/21/22 15:33 Acetaminophen (Ofirmev) 1,000 mg in 100 mls @ 400 mls/hr IV Q8H PRN PRN Reason: Pain Rating 1-3 & Pre PT Stop: 08/23/22 15:35 Dexamethasone 6 mg/ Syringe 1.5 mls @ 1 mls/min IV DAILY CRISTAL Stop: 08/25/22 09:02 Last Admin: 08/23/22 08:19 Dose: 1 mls/min Influenza Virus Vaccine Quadrival (Do Not Administer Flu Vaccine) 1 each N/A PRN PRN PRN Reason: Notification Stop: 09/21/22 15:33 Lorazepam (Lorazepam 0.5 Mg Tab) 0.5 mg PO Q8H PRN PRN Reason: Sedation/Anxiety Stop: 09/21/22 15:33 Lorazepam (Lorazepam 2 Mg/1 Ml Vial) 0.5 mg IV Q8H PRN PRN Reason: Sedation/Anxiety Stop: 09/21/22 15:33 Magnesium Hydroxide (Magnesium Hydroxide Susp 30 Ml Udc) 30 ml PO Q24H PRN PRN Reason: Constipation Stop: 09/21/22 15:33 Metoclopramide HCl (Metoclopramide Hcl Inj 5 Mg/Ml 2 Ml Vial) 10 mg IV Q6H PRN PRN Reason: Nausea &/or Vomiting Stop: 09/21/22 15:33 Naloxone HCl (Naloxone Hcl 0.4 Mg/1 Ml Vial/Carp) 0.1 mg IV Q5M PRN PRN Reason: Oversedation/Resp depression Stop: 09/21/22 15:33 Ondansetron HCl (Ondansetron Inj 2 Mg/Ml 2 Ml Vial) 4 mg IV Q6H PRN PRN Reason: Nausea &/or Vomiting Stop: 09/21/22 15:33 Ondansetron HCl (Ondansetron 4 Mg Od Tab) 4 mg PO Q6H PRN PRN Reason: Nausea Stop: 09/21/22 15:33 Oxycodone HCl (Oxycodone Hcl Ir 5 Mg Tab (Immediate Release)) 5 - 10 mg PO Q4H PRN PRN Reason: Pain & Pre PT Stop: 09/05/22 15:33 Last Admin: 08/23/22 08:18 Dose: 5 mg Pneumococcal Polyvalent Vaccine (Do Not Administer Pneumococcal Vaccine) 1 each N/A PRN PRN PRN Reason: Notification Stop: 09/21/22 15:33 Polyethylene Glycol (Polyethylene (Miralax) 17 Gm Pack) 17 gm PO Q6 CRISTAL Stop: 09/22/22 05:59 Last Admin: 08/23/22 05:45 Dose: 17 gm Senna/Docusate Sodium (Docusate Sodium/Senna 50/8.6mg Tab) 2 tab PO HS CRISTAL Stop: 09/21/22 20:59 Last Admin: 08/22/22 21:08 Dose: 2 tab Sodium Biphosphate/Sodium Phosphate (Sod Phosphate/Sod Biphosphate Enema 132 Ml Btl) 132 ml SC ONE PRN PRN Reason: Constipation Stop: 09/21/22 15:33 Tamsulosin HCl (Tamsulosin Hcl 0.4 Mg Cap) 0.4 mg PO QPM CRISTAL Stop: 09/21/22 20:59 Last Admin: 08/22/22 21:08 Dose: 0.4 mg Tramadol HCl (Tramadol Hcl 50 Mg Tablet) 50 - 100 mg PO Q4H PRN PRN Reason: Moderate-Severe pain & Pre PT Stop: 09/21/22 15:33 Vitamin D (Cholecalciferol 5,000 Units 125 Mcg Tab) 10,000 units PO QPM CRISTAL Stop: 09/21/22 20:59 Last Admin: 08/22/22 21:07 Dose: 10,000 units
[2022-08-23] MEDS ORDERED: SODIUM CHLORIDE 0.9% 1000ML 500 ML IV ONE (16:04)
[2022-08-23] MEDS: CETIRIZINE HCL 10 MG TABLET PO SCH (19:13)
[2022-08-23] MEDS: DOCUSATE SODIUM/SENNA 50/8.6MG TAB PO SCH (19:13)
[2022-08-23] MEDS: CHOLECALCIFEROL 5,000 UNITS 125 MCG TAB PO SCH (19:13)
[2022-08-23] MEDS: TAMSULOSIN HCL 0.4 MG CAP PO SCH (19:14)
[2022-08-23] MEDS: FERROUS SULFATE 325 MG TAB PO SCH (19:14)
[2022-08-24] MEDS: ACETAMINOPHEN 500 MG TAB PO PRN ×3 (00:08→21:40)
[2022-08-24] MEDS: POLYETHYLENE (MIRALAX) 17 GM PACK PO SCH ×3 (00:08→13:05)
[2022-08-24 07:18] LABS: Basophils # (auto) 0.02 K/uL (0-0.2); Basophils % (auto) 0.4 %; Eosinophils # (auto) 0.06 K/uL (0-0.50); Eosinophils % (auto) 1.2 %; Hematocrit (blood only) 33.3 % (42.0-52.0); Immature Granulocytes # (auto) 0.02 K/uL (0.01-0.20); Immature Granulocytes % (auto) 0.4 %; Lymphocytes # (auto) 1.05 K/uL (1.2-3.4); Lymphocytes % (auto) 20.2 %; Mean Corpuscular Hemoglobin 31.3 pg (25.0-34.0); Mean Corpuscular Volume 94.9 fL (80.0-100.0); Mean Platelet Volume 10.4 fL (9.4-12.4); Monocytes # (auto) 0.38 K/uL (0.11-0.59); Monocytes % (auto) 7.3 %; Neutrophils # (auto) 3.66 K/uL (1.40-6.50); Neutrophils % (auto) 70.5 %; Platelet Count 114 K/uL (130-400); RDW Coefficient of Variation 14.1 % (11.5-14.5); RDW Standard Deviation 48.8 fL (36.4-46.3); Red Blood Count 3.51 M/uL (4.70-6.10); White Blood Count 5.19 K/ul (4.8-10.8)
[2022-08-24 07:32] LABS: BUN Creatinine Ratio 18.5 (10-20); Calcium 8.8 mg/dl (8.6-10.3); Creatinine Clr Calc Pharmacy 93.4 ml/min; Est GFR (African American) 104.4 ml/min; Potassium 3.6 mmol/L (3.5-5.1)
[2022-08-24] MEDS: dexAMETHasone 6 MG in SYRINGE 0 ML IV SCH (08:20)
--- NOTE | 2022-08-24 10:34 | Orthopedic Progress Note ---
Date of Service August 24, 2022 Assessment & Plan (1) Neurogenic claudication due to lumbar spinal stenosis: Plan: This time we will continue physical therapy monitor his ORIN output anticipate discharge home tomorrow. Admission and Anticipated Discharge Date Admission Date: August 22, 2022 Subjective Back pain controlled leg pain improved Physical Exam Physical Exam: Patient is up and ambulating. Is constricted testing. Appears comfortable. Results & Data Vital Signs (Past 12 Hours) Vital Signs Temp Pulse Resp BP Pulse Ox O2 Del Method 08/24/22 07:24 36.6 C 69 18 111/65 95 Room Air
--- NOTE | 2022-08-24 13:21 | Hospitalist Progress Note ---
Date of Service August 24, 2022 Assessment & Plan (1) Neurogenic claudication due to lumbar spinal stenosis: (2) S/P spinal surgery: Plan: Post op day# 2 S/P revision decompression L4-S1, fusion L4-S1 today by Dr Mikki BOOKER# 50ml -pain management per ortho -wound management per ortho -PT/OT as appropriate -DVT prophylaxis per ortho -incentive spirometry -Remains stable-likely be discharged tomorrow (3) MGUS (monoclonal gammopathy of unknown significance): Plan: No acute symptoms were changed (4) Anemia: Plan: History MGUS, chronic iron deficiency anemia, chronic neutropenia -Pre-op Hgb: 11.9, WBC: 3.2 -Continue ferrous sulfate -Follows with [facility] -Hemoglobin remains stable (5) BPH (benign prostatic hyperplasia): Plan: - Continue tamsulosin DVT Prophylaxis -SCDs Disposition per primary team Follows with Dr Jose Barber in [place], [place] for routine care No medical issues Likely discharge tomorrow Admission and Anticipated Discharge Date Admission Date: August 22, 2022 Subjective 08/23/2022 The patient was seen and examined in medical floor He is status post L4-S1 revision decompression and fusion on 08/22/2022 Still has the same symptoms in the legs as before but denies any other significant medical symptoms 08/24/2022 The patient was seen and examined in medical floor He has been stable and getting physical therapy Minimal discomfort at the back but no other symptoms Review of Systems Review of Systems: All systems reviewed and are unremarkable except as noted below Physical Exam Physical Exam: Lying in bed comfortably Constitutional: well developed, well nourished and average body habitus; not ill appearing Eyes: PERRL, conjunctivae normal, anicteric sclerae ENMT: external ear and nose normal, oropharynx normal Neck: trachea midline, no thyromegaly Respiratory: no respiratory distress Auscultation: lungs clear to auscultation bilaterally Cardiovascular: Rate/Rhythm: regular rate and regular rhythm; not tachycardic Heart Sounds: normal S1 and normal S2; no murmur Extremities: no edema Gastrointestinal (Abdomen): Inspection/Auscultation: normal bowel sounds; abdomen not distended Percussion/Palpation: abdomen soft; abdomen nontender Psychiatric: A+Ox3, euthymic affect Lymphatic: no cervical or axillary lymphadenopathy Results & Data Results & Data Vital Signs (Past 12 Hours) Vital Signs Temp Pulse Resp BP Pulse Ox O2 Del Method 08/24/22 07:24 36.6 C 69 18 111/65 95 Room Air Laboratory Results Short CBC 08/24/22 Range/Units 06:38 WBC 5.19 (4.8-10.8) K/ul Hgb 11.0 L (14.0-18.0) g/dl Hct 33.3 L (42.0-52.0) % Plt Count 114 L (130-400) K/uL BMP 08/24/22 06:38 Sodium 143 Potassium 3.6 Chloride 107 Carbon Dioxide 33 H BUN 15 Creatinine 0.81 Glucose 128 H Calcium 8.8 Medications Administered Current Inpatient Medications Acetaminophen (Acetaminophen 500 Mg Tab) 1,000 mg PO Q8H PRN PRN Reason: MILD Pain Scale 1,2,3 & Pre PT Stop: 09/21/22 15:33 Last Admin: 08/24/22 13:14 Dose: 1,000 mg Al Hydrox/Mg Hydrox/Simethicone (Aluminum/Magnesium Susp 30 Ml Udc) 30 ml PO Q6H PRN PRN Reason: Dyspepsia Stop: 09/21/22 15:33 Bisacodyl (Bisacodyl 10 Mg Supp) 10 mg ID DAILY PRN PRN Reason: Constipation Stop: 09/21/22 15:33 Cetirizine HCl (Cetirizine Hcl 10 Mg Tablet) 10 mg PO HS CRISTAL Stop: 09/21/22 20:59 Last Admin: 08/23/22 19:13 Dose: 10 mg Diphenhydramine HCl (Diphenhydramine Capsule 25 Mg Cap) 25 mg PO Q6H PRN PRN Reason: Allergic Rhinitis/Insomnia Stop: 09/21/22 15:33 Famotidine (Famotidine 20 Mg Tab) 20 mg PO Q12H PRN PRN Reason: Dyspepsia Stop: 09/21/22 15:33 Ferrous Sulfate (Ferrous Sulfate 325 Mg Tab) 325 mg PO QPM CRISTAL Stop: 09/21/22 20:59 Last Admin: 08/23/22 19:14 Dose: 325 mg Hydromorphone HCl (Hydromorphone Inj 0.5 Mg/0.5 Ml Syr) 0.5 mg IV Q3H PRN PRN Reason: MODERATE Pain (Scale 4,5,6) & Pre PT Stop: 09/05/22 15:33 Hydromorphone HCl (Hydromorphone Inj 1 Mg/Ml Syringe) 1 mg IV Q3H PRN PRN Reason: SEVERE Pain (Scale 7,8,9,10) Stop: 09/05/22 15:33 Hydroxyzine HCl (Hydroxyzine Hcl 25 Mg Tab) 25 mg PO Q8H PRN PRN Reason: Anxiety Stop: 09/21/22 15:33 Promethazine HCl 12.5 mg/ (Sodium Chloride) 50.5 mls @ 202 mls/hr IV Q6H PRN PRN Reason: Nausea &/or Vomiting Stop: 09/21/22 15:33 Dexamethasone 6 mg/ Syringe 1.5 mls @ 1 mls/min IV DAILY CRISTAL Stop: 08/25/22 09:02 Last Admin: 08/24/22 08:20 Dose: 1 mls/min Influenza Virus Vaccine Quadrival (Do Not Administer Flu Vaccine) 1 each N/A PRN PRN PRN Reason: Notification Stop: 09/21/22 15:33 Lorazepam (Lorazepam 0.5 Mg Tab) 0.5 mg PO Q8H PRN PRN Reason: Sedation/Anxiety Stop: 09/21/22 15:33 Lorazepam (Lorazepam 2 Mg/1 Ml Vial) 0.5 mg IV Q8H PRN PRN Reason: Sedation/Anxiety Stop: 09/21/22 15:33 Magnesium Hydroxide (Magnesium Hydroxide Susp 30 Ml Udc) 30 ml PO Q24H PRN PRN Reason: Constipation Stop: 09/21/22 15:33 Metoclopramide HCl (Metoclopramide Hcl Inj 5 Mg/Ml 2 Ml Vial) 10 mg IV Q6H PRN PRN Reason: Nausea &/or Vomiting Stop: 09/21/22 15:33 Naloxone HCl (Naloxone Hcl 0.4 Mg/1 Ml Vial/Carp) 0.1 mg IV Q5M PRN PRN Reason: Oversedation/Resp depression Stop: 09/21/22 15:33 Ondansetron HCl (Ondansetron Inj 2 Mg/Ml 2 Ml Vial) 4 mg IV Q6H PRN PRN Reason: Nausea &/or Vomiting Stop: 09/21/22 15:33 Ondansetron HCl (Ondansetron 4 Mg Od Tab) 4 mg PO Q6H PRN PRN Reason: Nausea Stop: 09/21/22 15:33 Oxycodone HCl (Oxycodone Hcl Ir 5 Mg Tab (Immediate Release)) 5 - 10 mg PO Q4H PRN PRN Reason: Pain & Pre PT Stop: 09/05/22 15:33 Last Admin: 08/23/22 08:18 Dose: 5 mg Pneumococcal Polyvalent Vaccine (Do Not Administer Pneumococcal Vaccine) 1 each N/A PRN PRN PRN Reason: Notification Stop: 09/21/22 15:33 Polyethylene Glycol (Polyethylene (Miralax) 17 Gm Pack) 17 gm PO Q6 CRISTAL Stop: 09/22/22 05:59 Last Admin: 08/24/22 13:05 Dose: 17 gm Senna/Docusate Sodium (Docusate Sodium/Senna 50/8.6mg Tab) 2 tab PO HS CRISTAL Stop: 09/21/22 20:59 Last Admin: 08/23/22 19:13 Dose: 2 tab Sodium Biphosphate/Sodium Phosphate (Sod Phosphate/Sod Biphosphate Enema 132 Ml Btl) 132 ml ID ONE PRN PRN Reason: Constipation Stop: 09/21/22 15:33 Tamsulosin HCl (Tamsulosin Hcl 0.4 Mg Cap) 0.4 mg PO QPM CRISTAL Stop: 09/21/22 20:59 Last Admin: 08/23/22 19:14 Dose: 0.4 mg Tramadol HCl (Tramadol Hcl 50 Mg Tablet) 50 - 100 mg PO Q4H PRN PRN Reason: Moderate-Severe pain & Pre PT Stop: 09/21/22 15:33 Vitamin D (Cholecalciferol 5,000 Units 125 Mcg Tab) 10,000 units PO QPM CRISTAL Stop: 09/21/22 20:59 Last Admin: 08/23/22 19:13 Dose: 10,000 units
[2022-08-24] MEDS: CETIRIZINE HCL 10 MG TABLET PO SCH (21:40)
[2022-08-24] MEDS: CHOLECALCIFEROL 5,000 UNITS 125 MCG TAB PO SCH (21:40)
[2022-08-24] MEDS: FERROUS SULFATE 325 MG TAB PO SCH (21:41)
[2022-08-24] MEDS: TAMSULOSIN HCL 0.4 MG CAP PO SCH (21:41)
[2022-08-24] MEDS: DOCUSATE SODIUM/SENNA 50/8.6MG TAB PO SCH (21:41)
[2022-08-25] MEDS: dexAMETHasone 6 MG in SYRINGE 0 ML IV SCH (08:42)
--- NOTE | 2022-08-25 10:36 | Discharge Summary ---
Date of Service August 25, 2022 Admission HPI Per Admitting Provider This is a 72-year-old male who presents with chronic persistent back and leg pain after failing course of nonoperative care is here for surgical intervention. Principal Diagnosis Lumbar spinal stenosis with neurogenic claudication Discharge Data Allergies Allergy/AdvReac Type Severity Reaction Status Date / Time latex Allergy Mild Redness, Verified 08/22/22 11:10 hands raw with latex gloves Consultations 08/22/22 15:34 Consult Hospitalist Routine Procedures Performed Operation Date: 08/22/22 11:55 Actual Procedures p L4-S1 Revision Decompression and Fusion, Spinal Cord Monitoring - aKleb Kaye DO Ordered Studies 08/22/22 11:55 FL lumbar spine 2-3V Routine Hospital Course (1) Neurogenic claudication due to lumbar spinal stenosis: Patient went lumbar decompression fusion tolerated well second orthopedic. Labor postop plan 1 is up and ambulating progress postop day #2 and 3 ORIN drain decreased probably. Pain well controlled production strength testing. Separately discharged home. Discharge orders and instructions found in chart for further review. Total Time Total Time Spent Total Time Spent (In Minutes): 20 minutes Discharge Plan Discharge Items Patient Disposition: Home - Self-Care Reason For Visit: POSTOP Discharge Diagnosis: Lumbar spinal stenosis with radiculopathy Activity: As commented below Non-emergency contact: Primary Care Provider Call non-emergency contact if: you have any medication questions Follow-up/Referrals: Jose Barber M.D. [Primary Care Provider] - Diet: Regular Addtl Attending Provider Instructions: ACTIVITY RECOMMENDATIONS: SELF CARE INSTRUCTIONS AFTER THORACIC/LUMBAR FUSIONS 1. You may walk to your tolerance. It is good exercise for your legs and back. Expect some back and intermittent leg aches and pains. 2. You may perform "counter-top" level activities (make a sandwich, mandy with a project, etc.). 3. No bending or lifting of more than 10 pounds or back twisting of any nature (roll like a log when turning in bed). 4. You may ride in a car for 20-30 minutes at a time. No driving until after your first visit with your doctor. 5. Frequent changes of position and restricting sitting to 30 minutes at a time will help limit the amount of back spasms and stiffness you may experience. 6. You may discontinue the use of ambulatory aids (cane, crutches, etc.) once your strength and confidence allow. 7. You may nurse intern the shower and let water strike your incision when you arrive home at least once daily. Do not take a tub bath, sit in a hot tub or go into a swimming pool until after your first recheck in the office. SPECIAL CARE INSTRUCTIONS: VERY IMPORTANT TO READ AND REVIEW A. Your surgical incision has been closed with a cosmetic suture under the skin that will dissolve in about 6 weeks. In 14 days, you can use a pair of clean scissors and cut the suture that is left outside of the skin at the ends of your incision. 1. The small skin tapes can be removed 7 days after surgery if they have not fallen off by that point. 2. You may keep the wound open to air as much as possible to promote healing after post-op day number 5 unless told otherwise by your doctor. 3. If you think the wound looks like it is becoming infected (redness or worsening drainage) and/or you are experiencing fever, chill or worsening back pain and muscle spasms, contact the office so that we may evaluate you as soon as possible. B. Complications are uncommon, but please contact us if you have any signs or symptoms of: 1. wound infection (fever higher than 102.5 degrees F, redness, separation of wound, drainage, or increasing pain from the incision) 2. blood clots in legs (pain, swelling, redness and warmth in legs) 3. urinary tract infection (fever higher than 102.5 degrees F, burning upon urination or increased frequency of urination) 4. nerve problems (inability to walk on your toes or heels, numbness, loss of bowel or bladder control) 5. any other symptoms that concern you C. Please call the office at if you have any concerns or questions about your operation or recovery. D. No smoking! Smoking drastically decreases the chance of a solid fusion. E. Do not take any anti-inflammatory medications (Indocin, Advil, Motrin, Aspirin, Naprosyn, etc.) as these may inhibit the chance of a solid fusion. Tylenol is okay to take for pain. MANAGING PAIN AFTER SPINAL SURGERY 1. Narcotic medication is intended for short-term use and will be provided for surgical pain. Surgical pain usually lasts for a period of 4-6 weeks. Narcotic medication includes Percocet, Vicodin, Darvocet, Tylenol #3 or Lortab. 2. Longer-term pain is more appropriately treated with non-narcotic medication such as Tylenol ES. 3. Muscle spasm is not appropriately treated with narcotics. Muscle relaxers such as Soma, Flexeril or Skelaxin can be used along with Tylenol ES. 4. Remember that we all live with some "aches and pains". This is not unusual or uncommon after an injury or as we get older. a. Back pain is expected and may include muscle spasms for 4 to 6 weeks after surgery. The pain should gradually improve. If the pain worsens for no apparent reason, please contact the office. b. Intermittent leg pain may also be experienced and should not be concerned about unless it worsens for no apparent reason. If so, please contact the office. 5. We will provide appropriate medication within the normal guidelines of their prescribed use. We will also be very cautious and aware of potential abuse and extended duration of patients' medication needs. a. Pain medications are for your comfort and to assist with sleep and rest so that the tissue can heal. They are not provided in order to return to normal activity and should not be used through the day. To do so or worsening pain at night can result from ongoing tissue damage and development of tolerance to the prescribed medicine. 6. Please allow 2-3 days to process refills. Prescriptions will not be mailed but must be picked up at the office. FOLLOW UP VISIT: Keep your scheduled follow-up appointment. Any questions, please call the office at . Pending Studies at Discharge: No Stand-Alone Forms: [facility], Smoking Cessation Medications and RI Order Prescriptions: New tramadol 50 mg tablet 50 mg PO Q6H PRN (Reason: pain, moderate) Qty: 30 0RF oxycodone 5 mg tablet 5 mg PO Q6H PRN (Reason: pain) Qty: 30 0RF Continued celecoxib [Celebrex] 200 mg Capsule 200 mg PO QAM cetirizine 10 mg Tablet 10 mg PO HS clobetasol 0.05 % Cream 1 applic TOPICAL DAILY PRN (Reason: Rash) ferrous sulfate 325 mg (65 mg iron) Tablet 325 mg PO QPM calcipotriene 0.005 % Cream 1 applic TOPICAL DAILY PRN (Reason: Rash) Rx Instructions: rub in gently and completely cholecalciferol (vitamin D3) [Vitamin D3] 125 mcg (5,000 unit) Tablet 10,000 unit PO QPM vitamin K2 100 mcg Capsule 100 mcg PO QPM tamsulosin 0.4 mg Capsule 0.4 mg PO QPM Herbal Magnesium 2 tab PO BID Discharge Orders: Discharge Order (Routine); Ordered 08/25/22 Ordered By: Kaleb Kaye Admission Data Admit Date/Time: 08/22/22 14:09 Attending Provider: Kaleb Kaye Admit Provider: Kaleb Kaye Primary Care Provider: Jose Barber Other Providers: Fany Hector ; Steven Kramer
--- NOTE | 2022-08-26 07:50 | Hospitalist Progress Note ---
Date of Service August 26, 2022 This is a service for August 25, 2022 Assessment & Plan (1) Neurogenic claudication due to lumbar spinal stenosis: (2) S/P spinal surgery: Plan: Post op day# 3 S/P revision decompression L4-S1, fusion L4-S1 today by Dr Mikki BOOKER# 50ml -pain management per ortho -wound management per ortho -PT/OT as appropriate -DVT prophylaxis per ortho -incentive spirometry -Remains stable-likely be discharged tomorrow -Denies any significant symptoms and has been ambulating in the room and hallway without any problem (3) MGUS (monoclonal gammopathy of unknown significance): Plan: No acute symptoms were changed (4) Anemia: Plan: History MGUS, chronic iron deficiency anemia, chronic neutropenia -Pre-op Hgb: 11.9, WBC: 3.2 -Continue ferrous sulfate -Follows with [facility] -Hemoglobin remains stable (5) BPH (benign prostatic hyperplasia): Plan: - Continue tamsulosin -No problem with voiding DVT Prophylaxis -SCDs Disposition per primary team Follows with Dr Jose Barber in [place], [place] for routine care No medical issues He will be discharged this afternoon Admission and Anticipated Discharge Date Admission Date: August 22, 2022 Subjective 08/23/2022 The patient was seen and examined in medical floor He is status post L4-S1 revision decompression and fusion on 08/22/2022 Still has the same symptoms in the legs as before but denies any other significant medical symptoms 08/24/2022 The patient was seen and examined in medical floor He has been stable and getting physical therapy Minimal discomfort at the back but no other symptoms 08/25/2022 The patient was seen and examined in medical floor He has been stable with minimal pain at the back He will be discharged this afternoon Review of Systems Review of Systems: All systems reviewed and are unremarkable except as noted below Physical Exam Physical Exam: Lying in bed comfortably Constitutional: well developed, well nourished and average body habitus; not ill appearing Eyes: PERRL, conjunctivae normal, anicteric sclerae ENMT: external ear and nose normal, oropharynx normal Neck: trachea midline, no thyromegaly Respiratory: no respiratory distress Auscultation: lungs clear to auscultation bilaterally Cardiovascular: Rate/Rhythm: regular rate and regular rhythm; not tachycardic Heart Sounds: normal S1 and normal S2; no murmur Extremities: no edema Gastrointestinal (Abdomen): Inspection/Auscultation: normal bowel sounds; abdomen not distended Percussion/Palpation: abdomen soft; abdomen nontender Psychiatric: A+Ox3, euthymic affect Lymphatic: no cervical or axillary lymphadenopathy
== END 2022-08-25 13:04 | disposition home or self-care (01) | DRG 455 ==
LOC: ASU 10:29 → 3E 14:09
DX: D50.9 Iron deficiency anemia, unspecified; Z79.899 Other long term (current) drug therapy; Z87.891 Personal history of nicotine dependence; N40.0 Benign prostatic hyperplasia without lower urinary tract symptoms; G89.29 Other chronic pain; M48.062 Spinal stenosis, lumbar region with neurogenic claudication; D47.2 Monoclonal gammopathy; D70.9 Neutropenia, unspecified; Z91.040 Latex allergy status